=== PATIENT | male | born 1975 | race Caucasian/White ===

== ENCOUNTER 2016-09-05 19:08 | Emergency (ER) | payer BC ==
--- NOTE | ~2016-09-05 | CR211 ---
[facility] A Service of [facility] RADIOLOGY TEXT RESULTS PATIENT: JAM KONG LOCATION: [facility] : 77 UNIT #: [id number] AGE: [address]: Dimple Grier SEX: M ORDER DR: [id number] [facility] [address] [place], [place] [address] [id number] E MR#: [id number] Acc #: [id number] NAME: JAM KONG : 1975 SEX: M STUDY DATE/TIME: 09/05/2016 18:19 UNIT: [facility] ROOM: STUDY DESCRIPTION: CR Ribs Uni 2 View W PA Ch Rt Attending Physician: Dimple Grire Pa-C Ordering Physician: Dimple Grier Pa-C Primary Care Physician: Larry Sanchez M.D. MEDICAL IMAGING REPORT This report is preliminary unless electronic signature is present EXAM Chest with ribs, right. HISTORY Right posterior-inferior rib pain from coughing, mid and lower back pain. Symptoms for 3 days. COMMENT Frontal view of the chest and 4 views of the right ribs are submitted for review. No comparison. There is a calcified granuloma right mid to upper lung. The heart size is normal. No acute-appearing parenchymal infiltrate, acute congestive failure, pneumothorax, or pleural effusion is suspected. No acute fracture appreciated. IMPRESSION 1. No active disease is seen in the chest. 2. Nothing to suggest a right rib fracture on plain films. Dictated by... Rosario Villalta M.D. THIS IS AN ELECTRONICALLY VERIFIED REPORT Rosario Villalta M.D. at 09/06/2016 12:57 PM BEBA/sandi TD: 09/06/2016 09:28 JOB #: [id number] [facility] A Service of [facility] RADIOLOGY TEXT RESULTS PATIENT: JAM KONG LOCATION: [facility] : 77 UNIT #: [id number] AGE: [address]: Dimple Grier SEX: M ORDER DR: MEDICAL IMAGING REPORT COPY
[2016-09-05 18:21] LABS: URINE SOURCE CLEAN CATCH
[2016-09-05 18:26] LABS: URINE APPEARANCE CLEAR; URINE BILIRUBIN NEG (NEG); URINE BLOOD NEG (NEG); URINE COLOR YELLOW; URINE GLUCOSE NEG (NEG); URINE KETONE NEG (NEG); URINE LEUKOCYTE ESTERASE NEG (NEG); URINE NITRATE NEG (NEG); URINE PH 6.5 (5-8); URINE PROTEIN NEG (NEG); URINE SPECIFIC GRAVITY 1.015 (1.003-1.035); URINE UROBILINOGEN 0.2 MG/DL (NEG)
[2016-09-05 18:46] LABS: CULTURE INDICATED? NO
== END 2016-09-05 19:10 | disposition home or self-care (01) ==
LOC: CFTX 19:08
PROVIDERS: Physician Assistant Medical
DX: S20.219A Contusion of unspecified front wall of thorax, initial encounter (principal); I10 Essential (primary) hypertension; X58.XXXA Exposure to other specified factors, initial encounter
CPT/HCPCS: 71101; 81003; 99283